=== PATIENT | male | born 1985 | race Caucasian/White ===

== ENCOUNTER 2017-06-10 13:47 | Emergency (ER) | payer OTHER ==
[2017-06-10 14:37] LABS: BILIRUBIN,URINE NEGATIVE (NEGATIVE); GLUCOSE, URINE (UA) NEGATIVE (NEGATIVE); KETONES,URINE (UA) NEGATIVE (NEGATIVE); LEUKOCYTE ESTERASE, URINE NEGATIVE (NEGATIVE); NITRITE,URINE NEGATIVE (NEGATIVE); OCCULT BLOOD,URINE NEGATIVE (NEGATIVE); PROTEIN,URINE NEGATIVE (NEGATIVE); UROBILINOGEN,URINE 0.2 (NORMAL) E.U./dL (NORMAL)
[2017-06-10 14:38] LABS: CLARITY,URINE CLEAR (CLEAR)
--- NOTE | 2017-06-10 16:23 | ED Physician Documentation ---
PD HPI NVD - Stated complaint Stated Complaint: FATIGUE/INDIGESTION - Chief complaint Chief Complaint: General - History obtained from History obtained from: Patient - History of Present Illness Timing - onset: How many months ago (2) Timing - duration: Months (2) Timing - details: Gradual onset, Still present Associated symptoms: Loss of appetite, Other (has had slowly worsening feeling of muscle fatigue, some aching, and general muscle tiredness. He says he gets tired walking now. He says he feels that his eyelids get tired when he has been at work awhile, and he does say he gets feeling facial/jaw tiredness with chewing. Has not noted any ptosis per se.). No: Fever, Chest pain, Weight loss Contributing factors: No: Sick contact, Bad food, Travel, Recent antibiotics, Diabetes Improved by: Other (rest) Worsened by: Other (exertion) Similar symptoms before: Has not had sx before Recently seen: Clinic (seen at [facility] last month with some basic chemistry labs without obvious Dx and told to take Ibuprofen.) Review of Systems Constitutional: reports: Myalgias, Fatigue. denies: Fever, Chills, Weight Loss , Sweats Eyes: denies: Loss of vision, Decreased vision, Photophobia Nose: denies: Rhinorrhea / runny nose, Congestion Throat: denies: Sore throat Cardiac: denies: Chest pain / pressure, Palpitations Respiratory: denies: Cough GI: reports: Constipation. denies: Nausea, Vomiting, Diarrhea : denies: Dysuria, Frequency, Incontinent, Discharge Skin: denies: Rash, Lesions Musculoskeletal: denies: Neck pain, Back pain Neurologic: reports: Generalized weakness. denies: Focal weakness, Near syncope Psychiatric: denies: Depressed, Anxiety, Insomnia Endocrine: denies: Weight loss PD PAST MEDICAL HISTORY - Past Medical History Past Medical History: Yes Cardiovascular: None Respiratory: None Neuro: None Endocrine/Autoimmune: None GI: GERD - Past Surgical History General: Other - Present Medications Home Medications: Ambulatory Orders Medication Instructions Recorded Confirmed Dexamethasone [Decadron] 4 mg PO DAILY #7 tablet 06/10/17 Famotidine [Pepcid] 20 mg PO ONCE #30 tablet 06/10/17 Naproxen 375 mg PO BID #20 tablet 06/10/17 raNITIdine [Zantac] DAILY 06/10/17 - Allergies Allergies/Adverse Reactions: Allergies Allergy/AdvReac Type Severity Reaction Status Date / Time No Known Drug Allergies Allergy Verified 06/10/17 14:18 - Social History Does the pt smoke?: No Smoking Status: Never smoker Does the pt drink ETOH?: No Does the pt have substance abuse?: No - Immunizations Immunizations are current?: Yes - POLST Patient has POLST: No PD ED PE NORMAL - Vitals Vital signs reviewed: Yes - General General: Alert and oriented X 3, No acute distress, Well developed/nourished - HEENT HEENT: PERRL, EOMI (no ptosis), Moist mucous membranes, Pharynx benign - Neck Neck: Supple, no meningeal sign, No adenopathy, No JVD - Cardiac Cardiac: RRR, No murmur - Respiratory Respiratory: Clear bilaterally - Abdomen Abdomen: Soft, Non tender - Back Back: No CVA TTP - Derm Derm: Normal color, Warm and dry, No rash - Extremities Extremities: Normal ROM s pain, No edema, No calf tenderness / cord - Neuro Neuro: Alert and oriented X 3, 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, No motor deficit, No sensory deficit, Normal speech Eye Opening: Spontaneous Motor: Obeys Commands Verbal: Oriented GCS Score: 15 - Psych Psych: Normal mood Results - Vitals Vitals: Oxygen O2 Source Room air - Labs Labs: Laboratory Tests 06/10/17 06/10/17 06/10/17 14:28 17:32 17:32 WBC 4.7 L RBC 5.05 Hgb 14.4 Hct 42.9 MCV 84.9 MCH 28.4 MCHC 33.5 RDW 12.9 Plt Count 229 MPV 7.2 L Neut # 2.6 Lymph # 1.7 O'Brien # 0.3 Eos # 0.0 Baso # 0.0 Absolute Nucleated RBC 0.00 Nucleated RBC % 0.1 ESR Sodium 140 Potassium 4.0 Chloride 105 Carbon Dioxide 27 Anion Gap 8.0 BUN 9 Creatinine 0.8 Estimated GFR (MDRD) 114 Glucose 97 Calcium 9.1 Magnesium 2.2 Total Bilirubin 0.4 AST 38 ALT 79 H Alkaline Phosphatase 70 Total Creatine Kinase 289 H C-Reactive Protein < 1.0 Total Protein 7.7 Albumin 4.4 Globulin 3.3 Albumin/Globulin Ratio 1.3 Lipase 36 TSH Urine Color YELLOW Urine Clarity CLEAR Urine pH 6.0 Ur Specific Grady <=1.005 Urine Protein NEGATIVE Urine Glucose (UA) NEGATIVE Urine Ketones NEGATIVE Urine Occult Blood NEGATIVE Urine Nitrite NEGATIVE Urine Bilirubin NEGATIVE Urine Urobilinogen 0.2 (NORMAL) Ur Leukocyte Esterase NEGATIVE Ur Microscopic Review NOT INDICATED Urine Culture Comments NOT INDICATED 06/10/17 06/10/17 17:32 17:32 WBC RBC Hgb Hct MCV MCH MCHC RDW Plt Count MPV Neut # Lymph # O'Brien # Eos # Baso # Absolute Nucleated RBC Nucleated RBC % ESR 1 Sodium Potassium Chloride Carbon Dioxide Anion Gap BUN Creatinine Estimated GFR (MDRD) Glucose Calcium Magnesium Total Bilirubin AST ALT Alkaline Phosphatase Total Creatine Kinase C-Reactive Protein Total Protein Albumin Globulin Albumin/Globulin Ratio Lipase TSH 1.34 Urine Color Urine Clarity Urine pH Ur Specific Grady Urine Protein Urine Glucose (UA) Urine Ketones Urine Occult Blood Urine Nitrite Urine Bilirubin Urine Urobilinogen Ur Leukocyte Esterase Ur Microscopic Review Urine Culture Comments PD MEDICAL DECISION MAKING - ED course Complexity details: considered differential (quite broad differential for the weakness and fatigue. Consider thyroid disorder, diabetes, toxins (he does not take daily meds), and also Myesthenia, with some of his description of fatigue of eyelids and with chewing. ), d/w patient Departure - Departure Disposition: Home, Self Care Clinical Impression: Muscle weakness, Generalized muscle ache Condition: Stable Record reviewed to determine appropriate education?: Yes Instructions: ED Weakness [facility] Follow-Up: EDD CARDOSO [Primary Care Provider] - Prescriptions: Dexamethasone [Decadron] 4 mg PO DAILY #7 tablet Famotidine [Pepcid] 20 mg PO ONCE #30 tablet Naproxen 375 mg PO BID #20 tablet Comments: Drink lots of fluids. 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 Use antacids such as Maalox or Mylanta if needed. I think right now it seems like some inflammation of the muscles causing your symptoms will try some anti- inflammatories of naproxen twice daily for the next 10 days and Decadron daily for the next 7 days. Follow-up with your primary care next Tuesday as planned. Have them obtain the results of the blood tests we did not get the results of today. Those results will be available in 2-3 days. Recheck if worsening symptoms in the meantime. Discharge Date/Time: 06/10/17 18:45
[2017-06-10 17:42] LABS: BASOPHILS % (AUTO) 0.6 %; EOSINOPHILS % (AUTO) 0.9 %; HGB - HEMOGLOBIN 14.4 g/dL (14.0-18.0); LYMPHOCYTES # (AUTO) 1.7 10^3/uL (1.5-3.5); MEAN CORPUSCULAR HEMOGLOBIN 28.4 pg (27.0-31.0); MEAN CORPUSCULAR HGB CONC 33.5 g/dL (32.0-36.0); MEAN CORPUSCULAR VOLUME 84.9 fL (80.0-94.0); MEAN PLATELET VOLUME 7.2 fL (7.4-11.4); MONOCYTES # (AUTO) 0.3 10^3/uL (0.0-1.0); MONOCYTES % (AUTO) 6.4 %; NEUTROPHILS # (AUTO) 2.6 10^3/uL (1.5-6.6); NEUTROPHILS % (AUTO) 55.1 %; PLT - PLATELET COUNT 229 10^3/uL (130-450); RED BLOOD COUNT 5.05 10^6/uL (4.70-6.10); RED CELL DISTRIBUTION WIDTH 12.9 % (12.0-15.0); WHITE BLOOD COUNT 4.7 x10^3/uL (4.8-10.8)
[2017-06-10 17:59] LABS: ALBUMIN 4.4 g/dL (3.2-5.5); ALBUMIN/GLOBULIN RATIO 1.3 (1.0-2.2); ALKALINE PHOSPHATASE 70 IU/L (42-121); ALT ALANINE AMINOTRANSFERASE 79 IU/L (10-60); AST ASPARTATE AMINOTRANSFERASE 38 IU/L (10-42); BILIRUBIN,TOTAL 0.4 mg/dL (0.2-1.0); BUN - BLOOD UREA NITROGEN 9 mg/dL (6-20); CALCIUM 9.1 mg/dL (8.5-10.3); CARBON DIOXIDE - CO2 27 mmol/L (21-32); CHLORIDE 105 mmol/L (101-111); CK- CREATINE KINASE 289 IU/L (22-269); CREATININE 0.8 mg/dL (0.6-1.2); GFR - MDRD 114 (>89); GLUCOSE 97 mg/dL (70-100); LIPASE 36 U/L (22-51); MAGNESIUM 2.2 mg/dL (1.7-2.8); SODIUM 140 mmol/L (135-145); TOTAL PROTEIN 7.7 g/dL (6.7-8.2)
[2017-06-10 18:05] LABS: CRP - C-REACTIVE PROTEIN < 1.0 mg/dL (0-1.0)
[2017-06-10] MEDS ORDERED: NAPROXEN 250 MG TABLET PO STA (18:24)
[2017-06-10] MEDS ORDERED: DEXAMETHASONE 10 MG/ML VIAL PO STA (18:24)
[2017-06-10 18:44] VITALS: BP 148/82
[2017-06-15 16:16] LABS: LEAD (B) COLLECTION SAMPLE Venous
== END 2017-06-10 18:45 | disposition home or self-care (01) ==
LOC: ED 13:47
DX: M62.81 Muscle weakness (generalized) (principal); K30 Functional dyspepsia
CPT/HCPCS: 36415; 80053; 81003; 82175; 82550; 83519; 83655; 83690; 83735; 83825; 84443; 85025; 85651; 86140; 99283; A9270; 81001; 87086

== ENCOUNTER 2017-09-16 07:14 | Emergency (ER) | payer OTHER ==
[2017-09-16 07:24] VITALS: BP 150/107
[2017-09-16] MEDS ORDERED: DEXAMETHASONE 10 MG/ML VIAL PO STA (07:36)
--- NOTE | 2017-09-16 07:47 | ED Physician Documentation ---
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 He has worsening of the sore throat he has a fever and aches as well. He is coughing some yellow phlegm. Review of Systems Constitutional: reports: Fever, Chills, Myalgias, Fatigue Eyes: denies: Decreased vision Ears: denies: Ear pain Nose: reports: Rhinorrhea / runny nose, Congestion Throat: reports: Sore throat Cardiac: denies: Chest pain / pressure, Palpitations Respiratory: reports: Cough. denies: Dyspnea GI: denies: Abdominal Pain, Nausea, Vomiting PD PAST MEDICAL HISTORY - Past Medical History Past Medical History: Yes Cardiovascular: None Respiratory: None Neuro: None Endocrine/Autoimmune: None GI: GERD - Past Surgical History Past Surgical History: Yes General: Other - Present Medications Home Medications: Ambulatory Orders Medication Instructions Recorded Confirmed Azithromycin [Zithromax] 250 mg PO DAILY #6 tablet 09/16/17 - Allergies Allergies/Adverse Reactions: Allergies Allergy/AdvReac Type Severity Reaction Status Date / Time No Known Drug Allergies Allergy Verified 06/10/17 14:18 - Social History Does the pt smoke?: No Smoking Status: Never smoker Does the pt drink ETOH?: No Does the pt have substance abuse?: No - Immunizations Immunizations are current?: Yes - POLST Patient has POLST: No PD ED PE NORMAL - Vitals Vital signs reviewed: Yes (Febrile and hypertensive) - General General: Alert and oriented X 3, No acute distress, Well developed/nourished - HEENT HEENT: Atraumatic, PERRL, EOMI, Other (Both TMs are erythematous around the margins of the landmarks with some distortion. The pharynx is with erythema without exudate.) - Neck Neck: Supple, no meningeal sign, No bony TTP - Cardiac Cardiac: RRR, No murmur - Respiratory Respiratory: No respiratory distress, Clear bilaterally - Abdomen Abdomen: Soft, Non tender - Back Back: No CVA TTP, No spinal TTP - Derm Derm: Normal color, Warm and dry, No rash - Extremities Extremities: No deformity, No edema - Neuro Neuro: No motor deficit, No sensory deficit Eye Opening: Spontaneous Motor: Obeys Commands Verbal: Oriented GCS Score: 15 - Psych Psych: Normal mood, Normal affect Results - Vitals Vitals: Vital Signs - 24 hr 09/16/17 07:22 Temperature 38.2 C H Heart Rate 89 Respiratory 18 Rate Blood Pressure 150/107 H O2 Saturation 98 Oxygen O2 Source Room air - Labs Labs: Laboratory Tests 09/16/17 07:25 Group A Strep Rapid Negative PD MEDICAL DECISION MAKING - ED course Complexity details: reviewed results, re-evaluated patient, considered differential, d/w patient ED course: 31-year-old male with a sore throat and cough has otitis on exam and a rapid strep is pending. He is administered dexamethasone 10 mg orally. Departure - Departure Disposition: 01 Home, Self Care Clinical Impression: Otitis media Qualifiers: Otitis media type: suppurative Chronicity: acute Laterality: bilateral Recurrence: not specified as recurrent Spontaneous tympanic membrane rupture: without spontaneous rupture Qualified Code(s): H66.003 - Acute suppurative otitis media without spontaneous rupture of ear drum, bilateral Condition: Stable Instructions: ED Otitis Media Acute Adult Follow-Up: EDD CARDOSO [Primary Care Provider] - Prescriptions: Azithromycin [Zithromax] 250 mg PO DAILY #6 tablet Forms: Activity restrictions
== END 2017-09-16 08:13 | disposition home or self-care (01) ==
LOC: ED 07:14
DX: H66.003 Acute suppurative otitis media without spontaneous rupture of ear drum, bilateral (principal); K21.9 Gastro-esophageal reflux disease without esophagitis
CPT/HCPCS: 87070; 87430; 99283